=== PATIENT | male | born 1995 | race Caucasian/White ===

== ENCOUNTER 2024-01-13 19:40 | Inpatient (IN) | payer OTHER ==
[~2024-01-13] VITALS: Ht 188 cm; Wt 73.0 kg
[2024-01-13] MEDS ORDERED: CLINDAMYCIN 900 MG/6 ML VIAL ONE (23:26)
[2024-01-13] MEDS ORDERED: IBUPROFEN 600 MG TABLET ONE (23:27)
[2024-01-13 23:32] LABS: BASOPHILS % (AUTO) 0.3 % (0.0-2.0); EOSINOPHILS # (AUTO) 0.1 K/uL (0.0-0.7); EOSINOPHILS % (AUTO) 0.8 % (0.0-6.0); HEMATOCRIT 32 % (39-51); HEMOGLOBIN 10.6 g/dL (13.5-17.5); LYMPHOCYTES # (AUTO) 0.4 K/uL (0.8-4.8); MEAN CORPUSCULAR HEMOGLOBIN 29 PG (26.0-33.0); MEAN CORPUSCULAR HGB CONC 34 g/dl (31.0-36.0); MEAN CORPUSCULAR VOLUME 87 fL (80-96); MONOCYTES # (AUTO) 0.5 K/uL (0.1-1.30); MONOCYTES % (AUTO) 5.9 % (2.0-12.0); NEUTROPHILS # (AUTO) 7.2 K/uL (1.8-8.9); PLATELET COUNT (AUTO) 221 K/uL (150-450); RED BLOOD CELL COUNT(AUTO) 3.63 MIL/uL (4.5-6.0); RED CELL DISTRIBUTION WIDTH 13.5 % (11.5-15.0); WHITE BLOOD COUNT (AUTO) 8.1 K/uL (4.3-11.0)
[2024-01-13] MEDS ORDERED: IOHEXOL-300 100 ML VIAL IV ONE (23:36)
[2024-01-13] MEDS ORDERED: IV NS 0.9% 500 ML IV ONE (23:36)
[2024-01-13] MEDS ORDERED: CT SWABBABLE VALVE TRANS SET 1 EA INFUS.SET MC ONE (23:36)
[2024-01-13] MEDS: IV NS 0.9% 1,000 ML IV ONE (23:40)
[2024-01-13] MEDS: CLINDAMYCIN PHOSPHATE IV 600 MG/4 ML VIAL IV ONE (23:40)
[2024-01-13] MEDS: IBUPROFEN 600 MG TABLET PO ONE (23:40)
[2024-01-13 23:42] LABS: CALCIUM, SERUM 8.5 mg/dL (8.5-10.1); CARBON DIOXIDE 29 mmol/L (21-32); CHLORIDE 101 mmol/L (98-107); CREATININE 0.9 mg/dL (0.6-1.3); GLUCOSE 114 mg/dL (74-106); POTASSIUM 3.9 mmol/L (3.5-5.1); SODIUM SERUM 136 mmol/L (136-145); UREA NITROGEN, BLOOD 7 mg/dL (7-18)
[2024-01-13 23:47] LABS: ALANINE AMINOTRANSFERASE < 6 U/L (12-78); ALBUMIN 3.1 g/dL (3.4-5.0); ALKALINE PHOSPHATASE 100 U/L (46-116); ASPARTATE AMINOTRANSFERASE 7 U/L (15-37); BILIRUBIN,TOTAL 0.4 mg/dL (0.2-1.0); TOTAL PROTEIN, SERUM 7.5 g/dL (6.4-8.2)
[2024-01-13 23:52] LABS: LACTIC ACID 2.3 mmol/L (0.4-2.0)
[2024-01-14 01:31] LABS: APPEARANCE,URINE CLEAR (CLEAR); BILIRUBIN,URINE NEGATIVE (NEGATIVE); BLOOD, URINE NEGATIVE Ery/uL (NEGATIVE); KETONES,URINE NEGATIVE (NEGATIVE); LEUKOCYTE ESTERASE ,URINE NEGATIVE (NEGATIVE); NITRITE, URINE NEGATIVE (NEGATIVE); PROTEIN,URINE NEGATIVE (NEGATIVE); UGLUCOSE NEGATIVE (NEGATIVE); UROBILINOGEN,URINE 0.2 EU/dL (0.2)
[2024-01-14 01:32] LABS: COLOR,URINE LIGHT YELLOW (YELLOW)
[2024-01-14 01:59] LABS: AMPHETAMINE, URINE NEGATIVE (NEGATIVE); BARBITURATE, URINE NEGATIVE (NEGATIVE); COCCAINE, URINE NEGATIVE (NEGATIVE); PHENCYCLIDINE SCREEN,URINE NEGATIVE (NEGATIVE)
[2024-01-14 02:00] LABS: BENZODIAZEPINE, URINE POSITIVE (NEGATIVE); CANNABINOID, URINE POSITIVE (NEGATIVE); OPIATE, URINE POSITIVE (NEGATIVE)
[2024-01-14 02:07] LABS: BILIRUBIN,DIRECT 0.2 mg/dL (0.0-0.2)
[2024-01-14 02:15] LABS: LACTIC ACID REFLEX 0.6 mmol/L (0.4-1.9)
[2024-01-14] MEDS ORDERED: MORPHINE SULFATE INJ 2 MG/ML DISP.SYRIN ONE (05:58)
[2024-01-14] MEDS ORDERED: MAG HYDROX/AL HYDROX/SIMETH 30 ML UDC PO PRN (06:00)
[2024-01-14] MEDS ORDERED: Z GUARD REMEDY 4 OZ OINT TP PRN (06:00)
[2024-01-14] MEDS ORDERED: ONDANSETRON HCL/PF 4 MG/2 ML VIAL IVP PRN (06:00)
[2024-01-14] MEDS: MORPHINE SULFATE INJ 2 MG/ML DISP.SYRIN IV ONE (06:03)
[2024-01-14 07:24] LABS: BASOPHILS % (AUTO) 0.2 % (0.0-2.0); EOSINOPHILS # (AUTO) 0.1 K/uL (0.0-0.7); EOSINOPHILS % (AUTO) 1.3 % (0.0-6.0); HEMATOCRIT 29 % (39-51); HEMOGLOBIN 9.5 g/dL (13.5-17.5); LYMPHOCYTES # (AUTO) 1.2 K/uL (0.8-4.8); LYMPHOCYTES % (AUTO) 15.7 % (20.0-44.0); MEAN CORPUSCULAR HEMOGLOBIN 29 PG (26.0-33.0); MEAN CORPUSCULAR HGB CONC 33 g/dl (31.0-36.0); MEAN CORPUSCULAR VOLUME 88 fL (80-96); MONOCYTES # (AUTO) 1.1 K/uL (0.1-1.30); MONOCYTES % (AUTO) 14.3 % (2.0-12.0); NEUTROPHILS # (AUTO) 5.3 K/uL (1.8-8.9); NEUTROPHILS % (AUTO) 68.5 % (43.0-81.0); PLATELET COUNT (AUTO) 235 K/uL (150-450); RED BLOOD CELL COUNT(AUTO) 3.27 MIL/uL (4.5-6.0); RED CELL DISTRIBUTION WIDTH 13.4 % (11.5-15.0); WHITE BLOOD COUNT (AUTO) 7.8 K/uL (4.3-11.0)
[2024-01-14 07:53] LABS: BILIRUBIN,DIRECT 0.2 mg/dL (0.0-0.2); BILIRUBIN,TOTAL 0.5 mg/dL (0.2-1.0); CALCIUM, SERUM 8.6 mg/dL (8.5-10.1); CREATININE 0.7 mg/dL (0.6-1.3); MAGNESIUM 2.1 mg/dL (1.8-2.4); PHOSPHORUS 4.3 mg/dL (2.5-4.9); POTASSIUM 3.4 mmol/L (3.5-5.1); TOTAL PROTEIN, SERUM 7.3 g/dL (6.4-8.2)
[2024-01-14] MEDS ORDERED: OXYC10TA49 PO (07:58)
[2024-01-14] MEDS ORDERED: ALPR1TAB7 PO (07:58)
[2024-01-14 09:01] LABS: THYROID STIMULATING HORMONE 0.23 uIU/mL (0.358-3.74)
[2024-01-14] MEDS: ACETAMINOPHEN 325 MG TABLET PO PRN (09:32)
[2024-01-14] MEDS: PANTOPRAZOLE 40 MG TABLET.DR PO SCH (09:32)
[2024-01-14] MEDS: POTASSIUM CHLORIDE 20 MEQ TAB.PRT.SR PO SCH (10:35)
[2024-01-14] MEDS: CLINDAMYCIN 600 MG in IV NS 0.9% 46 ML IV SCH (12:53)
[2024-01-14] MEDS: MORPHINE SULFATE INJ 2 MG/ML DISP.SYRIN IV PRN (14:41)
[2024-01-14 20:00] VITALS: BP 115/66; TEMP 98.7; O2SAT 97
[2024-01-14] MEDS: oxyCODONE HCL SR 10MG TAB.SR.12H PO SCH (20:43)
[2024-01-14] MEDS: MAGNESIUM HYDROXIDE 30 ML UDC PO PRN (22:58)
[2024-01-15] MEDS: ALPRAZOLAM 1 MG TABLET PO PRN (00:34)
[2024-01-15 04:43] VITALS: BP 90/54; TEMP 98.3; O2SAT 98
[2024-01-15 07:23] LABS: BASOPHILS % (AUTO) 0.4 % (0.0-2.0); EOSINOPHILS # (AUTO) 0.4 K/uL (0.0-0.7); EOSINOPHILS % (AUTO) 6.8 % (0.0-6.0); HEMATOCRIT 28 % (39-51); HEMOGLOBIN 9.8 g/dL (13.5-17.5); LYMPHOCYTES # (AUTO) 1.5 K/uL (0.8-4.8); LYMPHOCYTES % (AUTO) 24.3 % (20.0-44.0); MEAN CORPUSCULAR HEMOGLOBIN 30 PG (26.0-33.0); MEAN CORPUSCULAR HGB CONC 35 g/dl (31.0-36.0); MEAN CORPUSCULAR VOLUME 87 fL (80-96); MONOCYTES # (AUTO) 0.9 K/uL (0.1-1.30); MONOCYTES % (AUTO) 15.4 % (2.0-12.0); NEUTROPHILS # (AUTO) 3.2 K/uL (1.8-8.9); NEUTROPHILS % (AUTO) 53.1 % (43.0-81.0); PLATELET COUNT (AUTO) 225 K/uL (150-450); RED BLOOD CELL COUNT(AUTO) 3.25 MIL/uL (4.5-6.0); RED CELL DISTRIBUTION WIDTH 13.2 % (11.5-15.0)
[2024-01-15 08:16] LABS: CALCIUM, SERUM 8.6 mg/dL (8.5-10.1); CREATININE 0.6 mg/dL (0.6-1.3); MAGNESIUM 2.1 mg/dL (1.8-2.4); PHOSPHORUS 3.6 mg/dL (2.5-4.9); POTASSIUM 3.8 mmol/L (3.5-5.1)
[2024-01-15] MEDS: MORPHINE SULFATE INJ 4 MG/ML DISP.SYRIN IV PRN (10:20)
[2024-01-15] MEDS: LIDOCAINE 1%-EPI 1:100,000 20 ML VIAL TP ONE (11:53)
[2024-01-15 12:06] VITALS: BP 84/56; TEMP 98.4; O2SAT 100
[2024-01-16 08:00] VITALS: BP 117/73; TEMP 98.2; O2SAT 100
[2024-01-16] MEDS ORDERED: SULF1TAB48 PO (08:46)
== END 2024-01-16 10:00 | disposition home or self-care (01) | DRG 364 ==
LOC: ER 19:48 → MEDSG1 01-14 08:19
PROVIDERS: ADMIT Internal Medicine; ATTEND Internal Medicine
PROC: 0J9H0ZZ Drainage of Left Lower Arm Subcutaneous Tissue and Fascia, Open Approach (ICD-10-PCS; principal; 2024-01-15)
DX: L02.414 Cutaneous abscess of left upper limb (principal); E43 Unspecified severe protein-calorie malnutrition; E88.09 Other disorders of plasma-protein metabolism, not elsewhere classified; D64.9 Anemia, unspecified; Z87.81 Personal history of (healed) traumatic fracture; F41.9 Anxiety disorder, unspecified; E87.6 Hypokalemia; G89.29 Other chronic pain; Z88.2 Allergy status to sulfonamides; Z88.3 Allergy status to other anti-infective agents; L03.114 Cellulitis of left upper limb
CPT/HCPCS: 36415; 73201-TC; 80048-TC; 80053-TC; 80076-TC; 82248-TC; 83605-TC; 83735-TC; 84100-TC; 84443-TC; 85025-TC; 87040-TC; A6253; A6403; A6407; G0378; J2270; J3490; J7030; J7040; J7060; Q9967

== ENCOUNTER 2024-01-22 15:30 | Inpatient (IN) | payer OTHER ==
[~2024-01-22] VITALS: Ht 185.4 cm; Wt 68.0 kg
[~2024-01-22 15:30] MED LIST: ALPR1TAB7 PO; OXYC10TA49 PO; SULF1TAB48 PO
[2024-01-22] MEDS: IV NS 0.9% 1,000 ML BAG IV ONE (16:30)
[2024-01-22 16:53] LABS: BASOPHILS # (AUTO) 0.1 K/uL (0.0-0.2); BASOPHILS % (AUTO) 1.1 % (0.0-2.0); EOSINOPHILS % (AUTO) 0.2 % (0.0-6.0); HEMATOCRIT 37 % (39-51); HEMOGLOBIN 12.7 g/dL (13.5-17.5); LYMPHOCYTES % (AUTO) 14.8 % (20.0-44.0); MEAN CORPUSCULAR HEMOGLOBIN 29 PG (26.0-33.0); MEAN CORPUSCULAR HGB CONC 34 g/dl (31.0-36.0); MEAN CORPUSCULAR VOLUME 87 fL (80-96); MONOCYTES # (AUTO) 0.4 K/uL (0.1-1.30); MONOCYTES % (AUTO) 6.4 % (2.0-12.0); NEUTROPHILS # (AUTO) 5.4 K/uL (1.8-8.9); NEUTROPHILS % (AUTO) 77.5 % (43.0-81.0); PLATELET COUNT (AUTO) 458 K/uL (150-450); RED BLOOD CELL COUNT(AUTO) 4.31 MIL/uL (4.5-6.0); RED CELL DISTRIBUTION WIDTH 13.9 % (11.5-15.0)
[2024-01-22] MEDS: LORAZEPAM INJ 2 MG/ML VIAL IVP ONE (17:00)
[2024-01-22] MEDS ORDERED: LORAZEPAM INJ 2 MG/ML VIAL ONE ×3 (17:00→19:27)
[2024-01-22 17:20] LABS: CALCIUM, SERUM 10.3 mg/dL (8.5-10.1); CARBON DIOXIDE 25 mmol/L (21-32); CHLORIDE 100 mmol/L (98-107); GLUCOSE 100 mg/dL (74-106); POTASSIUM 4.4 mmol/L (3.5-5.1); SODIUM SERUM 135 mmol/L (136-145); UREA NITROGEN, BLOOD 9 mg/dL (7-18)
[2024-01-22 17:23] LABS: ALANINE AMINOTRANSFERASE 16 U/L (12-78); ALBUMIN 4.5 g/dL (3.4-5.0); ALCOHOL, BLOOD < 3 mg/dL (0-10); ALKALINE PHOSPHATASE 97 U/L (46-116); ASPARTATE AMINOTRANSFERASE 15 U/L (15-37); BILIRUBIN,DIRECT 0.1 mg/dL (0.0-0.2); BILIRUBIN,TOTAL 0.6 mg/dL (0.2-1.0); TOTAL PROTEIN, SERUM 9.1 g/dL (6.4-8.2)
[2024-01-22 17:25] LABS: ACETAMINOPHEN 0 ug/ml (10-30); SALICYLATE 1.4 mg/dL (2.8-20.0)
[2024-01-22] MEDS: LORAZEPAM INJ 2 MG/ML VIAL IV ONE (18:10)
[2024-01-22] MEDS ORDERED: Z GUARD REMEDY 4 OZ OINT TP PRN (18:30)
[2024-01-22] MEDS ORDERED: MAGNESIUM HYDROXIDE 30 ML UDC PO PRN (18:30)
[2024-01-22 18:47] LABS: MAGNESIUM 1.9 mg/dL (1.8-2.4)
[2024-01-22 18:48] LABS: LACTIC ACID 1.7 mmol/L (0.4-2.0)
[2024-01-22] MEDS: LORAZEPAM 4 MG/ML VIAL IV ONE (19:30)
[2024-01-22 19:42] LABS: APPEARANCE,URINE CLEAR (CLEAR); BILIRUBIN,URINE NEGATIVE (NEGATIVE); BLOOD, URINE NEGATIVE Ery/uL (NEGATIVE); COLOR,URINE YELLOW (YELLOW); KETONES,URINE 3+ mg/dL (NEGATIVE); LEUKOCYTE ESTERASE ,URINE NEGATIVE (NEGATIVE); NITRITE, URINE NEGATIVE (NEGATIVE); PH,URINE 6.5 (5.0-8.0); PROTEIN,URINE NEGATIVE (NEGATIVE); UGLUCOSE NEGATIVE (NEGATIVE); UROBILINOGEN,URINE 0.2 EU/dL (0.2)
[2024-01-22 19:49] LABS: ADD URINE CULTURE NO; BACTERIA,URINE None seen /HPF (None Seen); RBC,URINE 0-2 /HPF (0-2); SQUAMOUS EPITHELIAL CELL,UR 0-2 /HPF (None Seen); WBC,URINE 0-2 /HPF (0-3)
[2024-01-22 20:27] LABS: AMPHETAMINE, URINE NEGATIVE (NEGATIVE); BARBITURATE, URINE NEGATIVE (NEGATIVE); BENZODIAZEPINE, URINE NEGATIVE (NEGATIVE); COCCAINE, URINE NEGATIVE (NEGATIVE); PHENCYCLIDINE SCREEN,URINE NEGATIVE (NEGATIVE)
[2024-01-22 20:45] LABS: CANNABINOID, URINE POSITIVE (NEGATIVE); OPIATE, URINE POSITIVE (NEGATIVE)
[2024-01-22] MEDS: OLANZAPINE 10 MG VIAL IM ONE ×2 (20:49→22:42)
[2024-01-22] MEDS: IV LR 1000 ML 1,000 ML IV PRN (20:51)
[2024-01-22 21:00] VITALS: BP 128/60; O2SAT 99
[2024-01-22 22:00] VITALS: BP 125/65; O2SAT 97
[2024-01-22] MEDS: LORAZEPAM INJ 2 MG/ML VIAL IV PRN (22:16)
[2024-01-22 23:00] VITALS: BP 117/86; O2SAT 98
[2024-01-23] VITALS (29 sets, daily range): BP systolic 89–141; BP diastolic 45–93; TEMP 98.4–99; O2SAT 98–100
[2024-01-23 04:52] LABS: BASOPHILS % (AUTO) 0.3 % (0.0-2.0); HEMATOCRIT 33 % (39-51); HEMOGLOBIN 11.1 g/dL (13.5-17.5); LYMPHOCYTES # (AUTO) 1.1 K/uL (0.8-4.8); LYMPHOCYTES % (AUTO) 8.7 % (20.0-44.0); MEAN CORPUSCULAR HEMOGLOBIN 29 PG (26.0-33.0); MEAN CORPUSCULAR HGB CONC 34 g/dl (31.0-36.0); MEAN CORPUSCULAR VOLUME 86 fL (80-96); MONOCYTES # (AUTO) 0.7 K/uL (0.1-1.30); NEUTROPHILS # (AUTO) 10.6 K/uL (1.8-8.9); PLATELET COUNT (AUTO) 378 K/uL (150-450); RED BLOOD CELL COUNT(AUTO) 3.86 MIL/uL (4.5-6.0); RED CELL DISTRIBUTION WIDTH 14.3 % (11.5-15.0); WHITE BLOOD COUNT (AUTO) 12.4 K/uL (4.3-11.0)
[2024-01-23 05:10] LABS: CALCIUM, SERUM 9.3 mg/dL (8.5-10.1); CREATININE 0.9 mg/dL (0.6-1.3); MAGNESIUM 1.7 mg/dL (1.8-2.4); PHOSPHORUS 3.3 mg/dL (2.5-4.9); POTASSIUM 3.6 mmol/L (3.5-5.1)
[2024-01-23] MEDS: DOXYCYCLINE HYCLATE (100 MG) 100 MG TABLET PO SCH (05:45)
[2024-01-23 06:08] LABS: THYROID STIMULATING HORMONE 0.98 uIU/mL (0.358-3.74)
[2024-01-23] MEDS: PANTOPRAZOLE 40 MG TABLET.DR PO SCH (07:45)
[2024-01-23] MEDS: TAMSULOSIN 0.4 MG CAP.SR.24H PO SCH (08:30)
[2024-01-23] MEDS: LORAZEPAM INJ 2 MG/ML VIAL IV PRN (09:46)
[2024-01-23] MEDS: MAGNESIUM OXIDE 400 MG TABLET PO ONE (09:59)
[2024-01-23] MEDS ORDERED: Magnesium 1GM/D5W 100ML PREMIX 100 ML IV SCH (10:30)
[2024-01-23] MEDS: Magnesium 1GM/D5W 100ML PREMIX PIGGYBACK IV ONE (12:05)
[2024-01-23] MEDS: HALOPERIDOL LACTATE INJ 5 MG/ML VIAL IM PRN (20:15)
[2024-01-24] VITALS (16 sets, daily range): BP systolic 96–125; BP diastolic 39–78; TEMP 98.1–99.1; O2SAT 97–99
[2024-01-24] MEDS: ACETAMINOPHEN 325 MG TABLET PO PRN (04:59)
[2024-01-24] MEDS: ONDANSETRON HCL/PF 4 MG/2 ML VIAL IVP PRN (04:59)
[2024-01-24 05:41] LABS: CALCIUM, SERUM 8.7 mg/dL (8.5-10.1); CREATININE 0.7 mg/dL (0.6-1.3); MAGNESIUM 2.1 mg/dL (1.8-2.4); POTASSIUM 3.6 mmol/L (3.5-5.1)
[2024-01-24] MEDS: IV LR 1000 ML 1,000 ML IV SCH (10:55)
[2024-01-25] MEDS: NEOMY SULF/BACITRAC ZN/POLY 15 GM TUBE TP SCH (09:18)
[2024-01-26] MEDS ORDERED: IV LR 1000 ML 1,000 ML IV PRN (11:12)
== END 2024-01-26 14:17 | disposition home or self-care (01) | DRG 812 ==
LOC: ER 16:09 → ICU 18:38 → TELE1 01-24 14:16 → MEDSG1 01-25 09:57
PROVIDERS: ADMIT Nurse Practitioner Family; ATTEND Nurse Practitioner Acute Care
DX: T45.0X1A Poisoning by antiallergic and antiemetic drugs, accidental (unintentional), initial encounter (principal); E87.1 Hypo-osmolality and hyponatremia; G47.00 Insomnia, unspecified; F32.9 Major depressive disorder, single episode, unspecified; H57.04 Mydriasis; Z88.2 Allergy status to sulfonamides; S61.502A Unspecified open wound of left wrist, initial encounter; X58.XXXA Exposure to other specified factors, initial encounter; Y93.9 Activity, unspecified; Z20.822 Contact with and (suspected) exposure to COVID-19; Y92.009 Unspecified place in unspecified non-institutional (private) residence as the place of occurrence of the external cause
CPT/HCPCS: 36415; 80048-TC; 80076-TC; 81001; 82550-TC; 82962-TC; 83605-TC; 83735-TC; 84100-TC; 84443-TC; 85025-TC; 94799-TC; A4223; G0378; G0480; J1630; J2060; J2405; J3475; J3490; J7050; J7120

== ENCOUNTER 2024-11-11 21:52 | Emergency (ER) | payer OTHER ==
[~2024-11-11] VITALS: Ht 188 cm; Wt 72.6 kg
[~2024-11-11 21:52] MED LIST changes: -SULF1TAB48 PO
[2024-11-11 22:22] VITALS: TEMP 98
[2024-11-11] MEDS ORDERED: HALOPERIDOL LACTATE INJ 5 MG/ML VIAL ONE (22:41)
[2024-11-11] MEDS ORDERED: ONDANSETRON HCL/PF 4 MG/2 ML VIAL ONE (22:41)
[2024-11-11] MEDS: MIDAZOLAM HCL 2 MG/2ML VIAL IV ONE (22:45)
[2024-11-11] MEDS: ONDANSETRON HCL/PF 4 MG/2 ML VIAL IV ONE (22:45)
[2024-11-11 22:50] LABS: PLATELET COUNT (AUTO) 359 K/uL (150-450); RED BLOOD CELL COUNT(AUTO) 5.25 MIL/uL (4.5-6.0); RED CELL DISTRIBUTION WIDTH 13.9 % (11.5-15.0); WHITE BLOOD COUNT (AUTO) 13.8 K/uL (4.3-11.0)
[2024-11-11] MEDS: HALOPERIDOL LACTATE INJ 5 MG/ML VIAL IV ONE (22:50)
[2024-11-11] MEDS: IV NS 0.9% 1,000 ML BAG IV ONE (22:52)
[2024-11-11 23:01] LABS: CALCIUM, SERUM 10.3 mg/dL (8.5-10.1); CREATININE 1.1 mg/dL (0.6-1.3); SODIUM SERUM 142 mmol/L (136-145); UREA NITROGEN, BLOOD 14 mg/dL (7-18)
[2024-11-11 23:06] LABS: ALCOHOL, BLOOD < 3 mg/dL (0-10); ASPARTATE AMINOTRANSFERASE 18 U/L (15-37); TOTAL PROTEIN, SERUM 9.0 g/dL (6.4-8.2)
[2024-11-11 23:09] LABS: LACTIC ACID 8.4 mmol/L (0.4-2.0)
[2024-11-12] MEDS: IV NS 0.9% 1,000 ML BAG IV ONE (00:01)
[2024-11-12 00:52] LABS: APPEARANCE,URINE CLEAR (CLEAR); BLOOD, URINE NEGATIVE Ery/uL (NEGATIVE); LEUKOCYTE ESTERASE ,URINE NEGATIVE (NEGATIVE); NITRITE, URINE NEGATIVE (NEGATIVE); UGLUCOSE NEGATIVE (NEGATIVE)
[2024-11-12 00:56] LABS: ADD URINE CULTURE NO; SQUAMOUS EPITHELIAL CELL,UR Few /HPF (None Seen)
[2024-11-12 01:07] LABS: AMPHETAMINE, URINE NEGATIVE (NEGATIVE); BARBITURATE, URINE NEGATIVE (NEGATIVE); CANNABINOID, URINE NEGATIVE (NEGATIVE); OPIATE, URINE NEGATIVE (NEGATIVE)
[2024-11-12 01:09] LABS: BENZODIAZEPINE, URINE POSITIVE (NEGATIVE); COCCAINE, URINE POSITIVE (NEGATIVE)
[2024-11-12 02:43] LABS: LACTIC ACID REFLEX 0.8 mmol/L (0.4-1.9)
[2024-11-12] MEDS ORDERED: POLY119P2 PO (02:53)
[2024-11-12] MEDS ORDERED: MAGN296S72 PO (02:53)
[2024-11-12] MEDS ORDERED: NALO4SPR BNOSTRILS (02:53)
[2024-11-12] MEDS ORDERED: ONDA4TAB5 PO (02:54)
[2024-11-12 03:10] VITALS: BP 111/75; O2SAT 99
== END 2024-11-12 03:11 | disposition home or self-care (01) ==
LOC: EDUNIT# 21:52 → ER 22:02
DX: R10.9 Unspecified abdominal pain (principal); F19.10 Other psychoactive substance abuse, uncomplicated; K59.00 Constipation, unspecified; F17.200 Nicotine dependence, unspecified, uncomplicated; Z88.1 Allergy status to other antibiotic agents; Z88.2 Allergy status to sulfonamides; Z79.899 Other long term (current) drug therapy
CPT/HCPCS: 99285; 96374; 96361 ×2; 96375; 93005; 74176; 85025; 83605 ×2; 83735; 36415 ×2; 80053; 86140; 80320; 80307; 82248; 81001; J1630; J2405; J7030 ×2; J2250; G0480

== ENCOUNTER 2025-01-18 22:18 | Emergency (ER) | payer OTHER ==
[~2025-01-18] VITALS: Ht 185.4 cm; Wt 72.6 kg
[~2025-01-18 22:18] MED LIST changes: +MAGN296S72 PO; +NALO4SPR BNOSTRILS; +ONDA4TAB5 PO; +POLY119P2 PO
[2025-01-18 22:43] VITALS: BP 115/68; TEMP 98; O2SAT 98
== END 2025-01-18 23:09 | disposition left against medical advice (07) ==
LOC: ER 22:30
DX: Z53.21 Procedure and treatment not carried out due to patient leaving prior to being seen by health care provider (principal)

== ENCOUNTER 2025-01-19 03:01 | Emergency (ER) | payer OTHER ==
[~2025-01-19] VITALS: Ht 185.4 cm; Wt 72.6 kg
[2025-01-19 04:47] VITALS: BP 119/80; TEMP 98.1; O2SAT 98
== END 2025-01-19 04:48 ==
LOC: ER 03:04
DX: S32.030A Wedge compression fracture of third lumbar vertebra, initial encounter for closed fracture (principal); Z02.89 Encounter for other administrative examinations; F17.200 Nicotine dependence, unspecified, uncomplicated; Z86.19 Personal history of other infectious and parasitic diseases; Z88.1 Allergy status to other antibiotic agents; Z88.2 Allergy status to sulfonamides; V29.99XA Rider (driver) (passenger) of other motorcycle injured in unspecified traffic accident, initial encounter; Y93.89 Activity, other specified; Y92.89 Other specified places as the place of occurrence of the external cause; Y99.8 Other external cause status
CPT/HCPCS: 72131-TC